=== PATIENT | female | born 1965 | race Caucasian/White ===

== ENCOUNTER 2016-10-12 12:21 | Emergency (ER) ==
[2016-10-12 12:32] VITALS: BP 133/86
--- NOTE | 2016-10-12 13:07 | Diag Imaging Result Document ---
PROCEDURE NAME: CHEST-2 VIEWS - 10/12/2016 FRONTAL AND LATERAL CHEST, TWO VIEWS: COMPARISON: No comparison plain films although there is a prior CT of the chest from 03/07/2013. FINDINGS: The lungs are well expanded. The heart is not enlarged. The pulmonary vessels are small. No pleural effusions. No infiltrates. There is increased density in the left apex. This is shown to represent calcified scarring on CT. No other abnormality. IMPRESSION: Emphysema with left apical scarring.
[2016-10-12] MEDS ORDERED: SOLU-MEDROL IV ONE (13:09)
[2016-10-12] MEDS ORDERED: DUONEB (A & A) INH ONE (13:09)
[2016-10-12] MEDS ORDERED: ZYRTEC PO ONE (13:10)
--- NOTE | 2016-10-12 13:24 | PROVIDER DOCUMENTATION ---
HPI-General Adult - General Chief Complaint: Cough Stated Complaint: COUGH Time Seen by Provider: 10/12/16 12:39 Source: patient Allergies/Adverse Reactions: Patient Allergies Allergy/AdvReac Type Severity Reaction Status Date / Time No Known Allergies Allergy Verified 10/12/16 12:32 Home Medications: Home Medication List Medication Instructions Recorded Confirmed Last Taken Type Albuterol Sulfate Inhaler 10/12/16 Unknown History [Ventolin Hfa] Albuterol Sulfate Inhaler 60 puff .SEE ORDER TID PRN #1 10/12/16 Unknown Rx [Ventolin Hfa] inhaler Magnesium 10/12/16 Unknown History Methylprednisolone [Medrol Dosepak] 4 mg PO DIRECTED #1 package 10/12/16 Unknown Rx Nebulizer Accessories [Nebulizer] 10/12/16 Unknown History Phenylephrine HCl/Cod/Prometh 2 tsp PO Q6H PRN PRN #120 syrup 10/12/16 Unknown Rx [Phenergan Vc-Codeine Syrup] - History of Present Illness -Gen Adult Nature of Presenting Problems: Pt. is 51 yof that presents with c/o cough and fatigue with sinus congestion for one week. Pt. reports she has also had some mild diarrhea and muscle aches. Pt. denies any fever that she knows of. Pt. doesn't report any other symptoms at this time. Location of Pain/Injury: reports: head. denies: face, mouth, neck, chest, upper extremity, hand(s), abdomen, back, pelvis, genitalia, lower extremity, feet, upper body, lower body, generalized Pain Radiation: reports: no radiation Quality of Pain: reports: aching, pressure. denies: burning, cramping, dull, fullness, indigestion, sharp, stabbing, tearing, throbbing, tightness Severity: reports: mild. denies: moderate, severe Onset/Duration: reports: gradual, 1 week ago Timing: reports: still present. denies: improving, gone now, resolved prior to arrival, intermittent, constant, changing over time, getting worse Context/Activities at Onset: reports: none. denies: recent emotional stress, recent physical stress, recent trauma history, possible bad food, cold exposure , out of country travel Modifying Factors: improves with: nothing Associated Symptoms: reports: cough, diarrhea, dizziness, EENT symptoms, fatigue , headaches, malaise, muscle aches, sinus congestion/drainage, weakness. denies : anxiety, arm pain, back/neck pain, chest pain, constipation, diaphoresis, fever/chills, genitourinary problems, heartburn, joint pain, loss of appetite, nausea, rash, seizure, shortness of breath, sensory/motor loss, pain with inspiration, swelling/mass in abdomen, syncope, vomiting, trouble walking Similar Symptoms Previously?: Yes Recently seen or treated by another doctor?: No Review of Systems - Adult - REVIEW OF SYSTEMS - ADULT Constitutional: reports: see HPI, fatique. denies: chills, fever Eyes: reports: see HPI. denies: discharge, blurred vision, double vision Ears, Nose, Mouth & Throat: reports: see HPI. denies: ear pain, hearing loss, sinus problem, nose pain, loose teeth, mouth/dental pain, throat pain, throat swelling Cardiovascular: reports: see HPI. denies: chest pain, irregular heart rate, orthopnea, palpitations, syncope Respiratory: reports: see HPI, cough. denies: dyspnea on exertion, excessive sputum production, pleurisy, shortness of breath, wheezing Gastrointestinal: reports: see HPI, abdominal pain, diarrhea. denies: hematemesis, constipation, frequent heartburn, nausea, vomiting Genitourinary: reports: see HPI. denies: dysuria, frequency, flank pain, hesitency, urgency Musculoskeletal: reports: see HPI, muscle aches. denies: bone pain, back pain, joint pain, joint swelling, neck pain Integumentary: reports: see HPI. denies: hives, itching, rash, skin thickening Neurological: reports: see HPI, dizziness/vertigo, headache/migraines. denies: ataxia, numbness, paresthesia, seizure, tremors Psychiatric: reports: see HPI. denies: anxiety, depression, emotional problems , insomnia, panic attacks, suicidal thoughts Past History - Adult - PAST MEDICAL HISTORY-ADULT Review of Records: reports: Old Records Reviewed, Nursing Assessment Review, Medications Reviewed, Social history reviewed & non-contributory. - IMMUNIZATION STATUS Childhood Immunizations: See Nurse Assessment Flu Vaccine: See Nurse Assessment - FAMILY HISTORY Family History: reviewed, not pertinent - SOCIAL HISTORY Smoking: cigarettes, greater than 1 pack/day Provider spent 3-5 mins advising pt. on dangers of tobacco.: Discussed the need to stop smoking. Physical Exam-General - PHYSICAL EXAM-ADULT Initial Vital Signs Reviewed: Yes - CONSTITUTIONAL General Appearance: alert, mild distress, thin. negative: obese, anxious, lethargic, slow to respond, obtunded, combative - EYES Eyes: PERRL/EOMI, pink conjunctivae. negative: conjuctival exudate, scleral icterus, subconjunctival hemorrhage - HEAD, EARS, NOSE, MOUTH & THROAT HENMT: normocephalic/atraumatic, moist mucous membranes, frontal tenderness. negative: angioedema, pharyngeal erythema, tonsillar exudate, maxillary tenderness - NECK Neck: non-tender, full range of motion, supple, normal inspection. negative: lymphadenopathy, trachial deviation, thyromegaly - RESPIRATORY Respiratory: rhonchi (mild). negative: crackles, rales, stridor, wheezing - CARDIOVASCULAR Cardiovascular: normal peripheral pulses, regular rate, rhythm, no edema, no JVD , no murmur. negative: extra beats, friction rub, irregularly irregular - CHEST (BREASTS) Chest/Breast: deferred - GASTROINTESTINAL (ABDOMEN) Abdominal Exam: normal bowel sounds, soft, tenderness. negative: hernia, mass - GENITOURINARY Female Genitalia/Pelvic Exam: deferred Rectal Exam: deferred Hemoccult Exam: deferred - LYMPHATIC Lymphatic: no adenopathy. negative: axilla node tender, cervical node tenderness - MUSCULOSKELETAL Back Exam: normal inspection, no CVA tenderness, no vertebral tenderness, other (Mild point tenderness on the right side just below the scapula). negative: ecchymosis, muscle spasm, vertebral tenderness Extremity: normal range of motion, non-tender, normal gait, normal inspection. negative: deformity, erythema, inflammation, swelling, tenderness Peripheral Pulses: radial (R): 2+, radial (L): 2+ - SKIN Integumentary: pallor. negative: normal turgor (Poor turgor), cyanosis, diaphoresis, ecchymosis, erythema, jaundice, mottled, petechiae, purpura, rash, swelling, tenderness - NEUROLOGIC Neurologic: grossly normal, no motor/sensory deficits. negative: aphasia, facial droop, focal weakness, motor weakness, sensory deficit - PSYCHIATRIC Psych/Mental Status: normal mood/affect, normal thought content, normal thought process, oriented x 3. negative: anxious, paranoid, tearful Progress - PLAN OF CARE/RESULTS Progress/Plan/Lab Results: Discussed results and plan of care with patient. Patient agrees with plan and verbalizes understanding. Vital Signs Temp Pulse Resp BP Pulse Ox 10/12/16 13:28 78 18 94 L 10/12/16 12:27 98 F 97 H 18 133/86 92 L No Known Allergies Allergy (Verified 10/12/16 12:32) Albuterol Sulfate Inhaler [Ventolin Hfa] 10/12/16 Magnesium 10/12/16 Nebulizer Accessories [Nebulizer] 10/12/16 Laboratory 10/12/16 10/12/16 10/12/16 13:45 13:20 13:20 WBC 4.23 L RBC 4.69 Hgb 15.1 Hct 45.1 MCV 96.2 MCH 32.2 H MCHC 33.5 RDW Std Deviation 12.8 Plt Count 198 MPV 10.0 Immature Gran % (Auto) 0.2 Neut % (Auto) 59.8 Lymph % (Auto) 31.7 [place] % (Auto) 7.6 Eos % (Auto) 0.0 Baso % (Auto) 0.7 Immature Gran # (Auto) 0.01 Neut # (Auto) 2.53 Lymph # (Auto) 1.34 [place] # (Auto) 0.32 Eos # (Auto) 0.00 Baso # (Auto) 0.03 Sodium 135 L Potassium 4.1 Chloride 98 Carbon Dioxide 24 L Anion Gap 13 BUN 19 Creatinine 0.6 Estimated GFR/1.73 m2 > 60 BUN/Creatinine Ratio 32 Glucose 104 Calculated Osmolality 273 Calcium 9.4 Total Bilirubin 0.40 AST 27 ALT 24 Alkaline Phosphatase 93 Total Protein 7.5 Albumin 4.4 Globulin 3.0 Albumin/Globulin Ratio 1.0 Urine Source CLEAN CATCH Urine Color YELLOW Urine Clarity CLEAR Urine pH 6.0 Ur Specific [place] 1.020 Urine Protein TRACE A Urine Ketones 3+(Large) A Urine Blood TRACE Urine Nitrite NEGATIVE Urine Bilirubin NEGATIVE Urine Urobilinogen NORMAL Urine Microscopic RBC <10 Urine WBC TRACE A Urine Microscopic WBC <10 Ur Epithelial Cells >10 A Urine Bacteria 2+ Urine Glucose NEGATIVE Orders Category Date Time Status Saline Loc NOW Care 10/12/16 13:09 Active CHEST-2 VIEWS [RAD] Stat Exams 10/12/16 12:35 Completed CBC WITH ELECTRONIC DIFF [HEME] Stat Lab 10/12/16 13:20 Completed COMPREHENSIVE METABOLIC PANEL [CHEM] Stat Lab 10/12/16 13:[address] W/POSS RFLX CULT [URINALYSIS] Stat Lab 10/12/16 13:45 Completed URINE CULTURE [RM] Routine Lab 10/12/16 14:16 Ordered Albuterol 2.5MG/Ipratrop 0.5MG [Duoneb (A & A)] Med 10/12/16 13:09 Discontinued 6 ml INH NOW ONE Cetirizine [Zyrtec] Med 10/12/16 13:10 Discontinued 10 mg PO NOW ONE Methylprednisolone Sod Succ [Solu-Medrol] Med 10/12/16 13:09 Discontinued 80 mg IV NOW ONE Aerosol Treatments Routine Oth 10/12/16 13:09 Active Aerosol Treatments Stat Oth 10/12/16 13:09 Active Laboratory Tests 10/12/16 10/12/16 10/12/16 13:20 13:20 13:45 WBC 4.23 L RBC 4.69 Hgb 15.1 Hct 45.1 MCV 96.2 MCH 32.2 H MCHC 33.5 RDW Std Deviation 12.8 Plt Count 198 MPV 10.0 Immature Gran % (Auto) 0.2 Neut % (Auto) 59.8 Lymph % (Auto) 31.7 [place] % (Auto) 7.6 Eos % (Auto) 0.0 Baso % (Auto) 0.7 Immature Gran # (Auto) 0.01 Neut # (Auto) 2.53 Lymph # (Auto) 1.34 [place] # (Auto) 0.32 Eos # (Auto) 0.00 Baso # (Auto) 0.03 Sodium 135 L Potassium 4.1 Chloride 98 Carbon Dioxide 24 L Anion Gap 13 BUN 19 Creatinine 0.6 Estimated GFR/1.73 m2 > 60 BUN/Creatinine Ratio 32 Glucose 104 Calculated Osmolality 273 Calcium 9.4 Total Bilirubin 0.40 AST 27 ALT 24 Alkaline Phosphatase 93 Total Protein 7.5 Albumin 4.4 Globulin 3.0 Albumin/Globulin Ratio 1.0 Urine Source CLEAN CATCH Urine Color YELLOW Urine Clarity CLEAR Urine pH 6.0 Ur Specific [place] 1.020 Urine Protein TRACE A Urine Ketones 3+(Large) A Urine Blood TRACE Urine Nitrite NEGATIVE Urine Bilirubin NEGATIVE Urine Urobilinogen NORMAL Urine Microscopic RBC <10 Urine WBC TRACE A Urine Microscopic WBC <10 Ur Epithelial Cells >10 A Urine Bacteria 2+ Urine Glucose NEGATIVE - XRAY 1 XRAY Study: Chest (Emphysema with left apical scarring unchanged from 03/07/13. ( Tim)) XRAY Interpretation: See note Departure - Departure Time of Disposition Order: 14:49 DIAGNOSIS: Dehydration, COPD exacerbation, Cough Gastritis Qualifiers: Gastritis type: unspecified gastritis Chronicity: acute Gastritis bleeding: without bleeding Qualified Code(s): K29.00 - Acute gastritis without bleeding Disposition: HOME 01 Certified Medical Emergency: Emergent Condition: Stable Additional Instructions: Follow up with primary care physician Take medications as directed Drink plenty of fluids Return to ED for any concerns or worsening of symptoms ED Follow Up Instructions: You have been treated by a care provider in the Emergency Department. These instructions are being provided to you so you can have an understanding of how to care for yourself upon discharge. Upon discharge from the Emergency Department, you are responsible for making arrangements for follow-up care by a physician of your choice. Take all prescribed medications as directed. Return to the Emergency Department immediately for any new or worsening symptoms. You may call the Physician Referral phone number at [phone] to obtain a list of Physicians who are taking new patients. Prescriptions: Methylprednisolone [Medrol Dosepak] 4 mg PO DIRECTED #1 package Phenylephrine HCl/Cod/Prometh [Phenergan Vc-Codeine Syrup] 2 tsp PO Q6H PRN PRN #120 syrup PRN Reason: Cough Albuterol Sulfate Inhaler [Ventolin Hfa] 60 puff .SEE ORDER TID PRN #1 inhaler PRN Reason: Shortness Of Breath Attestation - Physician/ LISETH Attestation Patient care was provided by Advanced Practice Provider:: Yes Advanced Practice Provider:: Belle Powers Advanced Practice Provider documentation review:: The Mid-level provider documentation, treatment plan and medical decision making was reviewed by the physician who agrees with all treatment and medical decision making by the MLP.
[2016-10-12 13:27] LABS: MANUAL DIFF NEEDED? NO
[2016-10-12 13:31] LABS: BASO% 0.7 % (0.0-0.8); HEMATOCRIT 45.1 % (37.0-47.0); HEMOGLOBIN 15.1 g/dL (12.0-16.0); IMM GRAN# 0.01 X1000 (0.0-0.04); IMM GRAN% 0.2 % (0.0-0.5); LYMPH# 1.34 X1000 (1.2-3.4); LYMPH% 31.7 % (20.5-51.1); MCH 32.2 PG (27-31); MCHC 33.5 g/dL (33-37); MCV 96.2 FL (81-99); MONO# 0.32 X1000 (0.11-0.59); MONO% 7.6 % (1.7-9.3); NEUT% 59.8 % (42.2-75.2); PLT 198 X1000 (130-400); RBC 4.69 XMIL (4.2-5.4)
[2016-10-12 13:54] LABS: AGAP 13; ALBUMIN 4.4 g/dL (3.5-5.0); ALKALINE PHOSPHATASE 93 U/L (32-104); BUN 19 mg/dL (8-22); CALCIUM 9.4 mg/dL (8.8-10.2); CHLORIDE 98 mmol/L (98-107); COSMO 273; GOT 27 U/L (10-30); GPT 24 U/L (10-36); POTASSIUM 4.1 mmol/L (3.5-5.1); SODIUM 135 mmol/L (136-145); TCO2 24 mmol/L (25-35); TOTAL PROTEIN 7.5 g/dL (6.3-8.3)
[2016-10-12 13:59] LABS: URINE SOURCE CLEAN CATCH
[2016-10-12 14:15] LABS: BILIRUBIN URINE NEGATIVE (NEGATIVE); BLOOD URINE TRACE (NEGATIVE); CLARITY CLEAR (CLEAR); COLOR YELLOW; GLUCOSE URINE NEGATIVE (NEGATIVE); LEUKOCYTES URINE TRACE (NEGATIVE); NITRITE URINE NEGATIVE (NEGATIVE); PROTEIN URINE TRACE mg/dL (NEGATIVE); URINE CULTURE PL NEEDED? YES; URINE EPITHELIAL CELLS >10 /HPF (<10); URINE RBC <10 /HPF (<10); URINE WBC <10 /HPF (<10); UROBILINOGEN URINE NORMAL
[2016-10-12] MEDS ORDERED: NS 1,000 ML IV ONE (15:02)
[2016-10-12] MEDS ORDERED: NS 1,000 ML ONE (15:03)
== END 2016-10-12 16:04 | disposition home or self-care (01) ==
LOC: P.ED 12:21
DX: J44.1 Chronic obstructive pulmonary disease with (acute) exacerbation (principal); K29.00 Acute gastritis without bleeding; E86.0 Dehydration; R05 Cough; R09.81 Nasal congestion; R53.83 Other fatigue; R19.7 Diarrhea, unspecified; M79.1 Myalgia; R42 Dizziness and giddiness; R51 Headache; R53.81 Other malaise; R53.1 Weakness; R10.9 Unspecified abdominal pain; F17.210 Nicotine dependence, cigarettes, uncomplicated; Z71.6 Tobacco abuse counseling; Z79.899 Other long term (current) drug therapy; Z79.51 Long term (current) use of inhaled steroids
CPT/HCPCS: 71020; 80053; 81001; 85025; 87088; 94640; J2930; J7030